=== PATIENT | female | born 1990 | race Caucasian/White ===

== ENCOUNTER → 2019-11-04 | Outpatient (CLI) | payer OTHER, SELFPAY | LOC: M LABSMTC 11:06 | PROVIDERS: ATTEND Family Medicine | DX: Z03.818 Encounter for observation for suspected exposure to other biological agents ruled out (principal); Z11.59 Encounter for screening for other viral diseases ==

== ENCOUNTER 2023-03-20 04:14 | Emergency (ER) | payer BC, SELFPAY ==
[~2023-03-20] VITALS: Ht 162.6 cm; Wt 82.2 kg
[2023-03-20] MEDS ORDERED: NITR100C2 (04:26)
[2023-03-20] MEDS ORDERED: ACETAMINOPHEN 325 MG TAB PO ONE (07:20)
[2023-03-20] MEDS ORDERED: PIPERACILLIN/TAZOBACTAM SOD 3.375 GM in D5W MINI-BAG PLUS 50 ML IV ONE (07:30)
[2023-03-20] MEDS ORDERED: ONDANSETRON 4MG 2ML VIAL IV ONE (07:30)
[2023-03-20] MEDS ORDERED: NS 1,000 ML IV ONE (07:30)
[2023-03-20] MEDS ORDERED: KETOROLAC 30 MG/ML 1ML VIAL IV ONE (07:30)
[2023-03-20] MEDS ORDERED: VANCOMYCIN HCL 1,750 MG in NS 250 ML IV ONE (07:30)
[2023-03-20] MEDS ORDERED: VANCOMYCIN HCL 1,000 MG, VIAL MATE ADAPTER 1 EACH in D5W 250 ML IV ONE (08:00)
[2023-03-20] MEDS ORDERED: VANCOMYCIN HCL 750 MG, VIAL MATE ADAPTER 1 EACH in D5W 250 ML IV ONE (09:00)
[2023-03-20 09:13] LABS: BASO % 0.3 % (0.0-1.0); EOS % 0.1 % (0.0-3.0); HEMATOCRIT 36.4 % (36.0-47.0); HEMOGLOBIN 12.3 g/dl (12.0-15.5); MEAN CORPUSCULAR HEMOGLOBIN 28.2 pg (27.0-33.0); MEAN CORPUSCULAR HGB CONC 33.8 g/dl (32.0-36.5); MEAN CORPUSCULAR VOLUME 83.5 fl (80.0-96.0); MONO # 1.2 10^3/uL (0.0-0.8); NEUTROPHILS # 12.3 10^3/uL (1.5-8.5); PLATELET COUNT, AUTOMATED 258 10^3/uL (150-450); RED BLOOD COUNT 4.36 10^6/uL (4.00-5.40); WHITE BLOOD COUNT 14.6 10^3/uL (4.0-10.0)
[2023-03-20 09:37] LABS: LIPASE 25 U/L (12-53)
[2023-03-20 09:39] LABS: ALBUMIN 3.5 G/DL (3.2-5.2); ALKALINE PHOSPHATASE 95 U/L (46-116); ALT/SGPT 14 U/L (7.0-40); AST/SGOT < 8 U/L (<34); BILIRUBIN,DIRECT 0.3 MG/DL (<0.4); BILIRUBIN,TOTAL 0.6 MG/DL (0.3-1.2); BLOOD UREA NITROGEN 8 MG/DL (9-23); CALCIUM LEVEL 8.8 MG/DL (8.5-10.1); CARBON DIOXIDE LEVEL 21 MMOL/L (20-31); CHLORIDE LEVEL 105 MMOL/L (98-107); CREATININE FOR GFR 0.81 MG/DL (0.55-1.30); GLOMERULAR FILTRATION RATE > 60.0 (>60); GLUCOSE, FASTING 114 MG/DL (60-100); POTASSIUM SERUM 3.5 MMOL/L (3.5-5.1); SODIUM LEVEL 136 MMOL/L (136-145); TOTAL PROTEIN 6.6 G/DL (5.7-8.2)
[2023-03-20] MEDS ORDERED: ISOVUE-370 76% 100ML VIAL As Ordered ONE (09:41)
[2023-03-20] MEDS ORDERED: MORPHINE 4 MG/ML 1ML VIAL IV ONE (10:30)
[2023-03-20] MEDS ORDERED: KETO10TAB PO (12:24)
[2023-03-20] MEDS ORDERED: CIPR-249 PO (12:24)
[2023-03-20 12:29] VITALS: BP 106/55; TEMP 98.3; O2SAT 96
== END 2023-03-20 12:49 | disposition home or self-care (01) ==
LOC: M ED 04:14
DX: N10 Acute pyelonephritis (principal); Z88.1 Allergy status to other antibiotic agents; Z88.8 Allergy status to other drugs, medicaments and biological substances
CPT/HCPCS: 74177; 80048; 80076; 81001; 83605; 83690; 84702; 85025; 87040; 87077; 87086; 87186; 96365; 96366; 96375; 99284; J1885; J2405; Q9967

== ENCOUNTER 2023-03-22 21:29 | Emergency (ER) | payer BC ==
[~2023-03-22] VITALS: Ht 162.6 cm; Wt 81.4 kg
[~2023-03-22 21:29] MED LIST: CIPR-249 PO; KETO10TAB PO; NITR100C2
[2023-03-22 21:30] VITALS: BP 125/65; TEMP 99.6; O2SAT 100
[2023-03-22 23:47] LABS: BASO % 0.5 % (0.0-1.0); EOS # 0.1 10^3/uL (0.0-0.5); EOS % 1.6 % (0.0-3.0); HEMATOCRIT 34.1 % (36.0-47.0); HEMOGLOBIN 11.4 g/dl (12.0-15.5); LYMPH # 1.8 10^3/uL (1.5-5.0); LYMPH % 20.5 % (24.0-44.0); MEAN CORPUSCULAR HEMOGLOBIN 28.1 pg (27.0-33.0); MEAN CORPUSCULAR HGB CONC 33.4 g/dl (32.0-36.5); MONO # 0.7 10^3/uL (0.0-0.8); MONO % 7.9 % (2.0-8.0); NEUTROPHILS # 6.1 10^3/uL (1.5-8.5); PLATELET COUNT, AUTOMATED 285 10^3/uL (150-450); RED BLOOD COUNT 4.06 10^6/uL (4.00-5.40); WHITE BLOOD COUNT 8.8 10^3/uL (4.0-10.0)
[2023-03-23 00:13] LABS: ALBUMIN 2.8 G/DL (3.2-5.2); ALKALINE PHOSPHATASE 90 U/L (46-116); ALT/SGPT 13 U/L (7.0-40); AST/SGOT < 8 U/L (<34); BILIRUBIN,TOTAL 0.2 MG/DL (0.3-1.2); BLOOD UREA NITROGEN 7 MG/DL (9-23); CALCIUM LEVEL 8.8 MG/DL (8.5-10.1); CARBON DIOXIDE LEVEL 24 MMOL/L (20-31); CHLORIDE LEVEL 108 MMOL/L (98-107); CREATININE FOR GFR 0.76 MG/DL (0.55-1.30); GLOMERULAR FILTRATION RATE > 60.0 (>60); GLUCOSE, FASTING 96 MG/DL (60-100); POTASSIUM SERUM 3.4 MMOL/L (3.5-5.1); SODIUM LEVEL 140 MMOL/L (136-145)
== END 2023-03-23 03:31 | disposition left against medical advice (07) ==
LOC: M ED 21:29
DX: Z53.21 Procedure and treatment not carried out due to patient leaving prior to being seen by health care provider (principal)

== ENCOUNTER 2023-07-24 00:36 | Emergency (ER) | payer BC ==
[~2023-07-24] VITALS: Ht 162.6 cm; Wt 82.7 kg
[2023-07-24 00:38] VITALS: BP 121/74; TEMP 98.7; O2SAT 98
== END 2023-07-24 02:17 | disposition left against medical advice (07) ==
LOC: M ED 00:36
DX: Z53.21 Procedure and treatment not carried out due to patient leaving prior to being seen by health care provider (principal)